=== PATIENT | female | born 1980 | race Native Hawaiian/Other Pacific Islander ===

== ENCOUNTER 2020-02-01 09:15 | Emergency (ER) | payer OTHER ==
[~2020-02-01] VITALS: Ht 167.6 cm; Wt 111.1 kg
[2020-02-01 09:30] VITALS: BP 130/72; TEMP 97.9
[2020-02-01 10:00] LABS: POTASSIUM 4.2 mmol/L (3.6-5.2); SODIUM 137 mmol/L (136-145)
[2020-02-01 10:09] LABS: PLATELET COUNT 233 K/uL (152-353)
[2020-02-01 10:59] LABS: PARTIAL THROMBOPLASTIN TIME 31.8 SECONDS (24.5-33.6)
== END 2020-02-01 10:36 | disposition home or self-care (01) ==
LOC: ED 09:15
PROVIDERS: Hospitalist
DX: N92.5 Other specified irregular menstruation (principal); E11.9 Type 2 diabetes mellitus without complications
CPT/HCPCS: 36415; 80053; 81000; 81025; 84702; 85027; 85610; 85730; 96360; 96365; 99284